=== PATIENT | female | born 1945 | race Caucasian/White ===

== ENCOUNTER 2023-10-19 19:48 | Emergency (ER) | payer OTHER, SELFPAY ==
[2023-10-19] VITALS (8 sets, daily range): BP systolic 109–159; BP diastolic 52–95
--- NOTE | 2023-10-19 21:12 | ED.GENMED ---
History of Present Illness
<Paresh Josue Ilan, DO - Last Filed: 10/19/23 22:36>
General
Chief Complaint: Head Injury
Time Seen by Provider: 10/19/23 21:12
History of Present Illness
History of Present Illness:
HPI: Patient states she fell. arrived indicating that she fell down about 3 steps in the garage falling backwards and striking the head. She has had a brain bleed in the past. She denies being on any antiplatelets or anticoagulation. She
has a laceration to the back of the head. She denies any other injury but notes acute on ankle edema.
EXAM:
GENERAL: Well appearing in no distress
CERVICAL SPINE: No midline c-spine tenderness with excellent AROM
HEAD: There is small laceration to the posterior scalp with active bleeding that improves with pressure
CHEST: No chest wall tenderness, normal heart sounds
LUNGS: Equal lung sounds, no respiratory distress
ABDOMEN: No abdominal tenderness, no peritoneal signs
EXTREMITIES: Normal active range of motion, no tenderness, moderate ankle edema noted states she has had of the past
NEURO: Excellent strength all extremities, appropriate mental status, normal speech/language
TIME OF INITIAL ENCOUNTER: 9:15 PM
NUMBER AND COMPLEXITY OF PROBLEMS ADDRESSED AT THE ENCOUNTER
� Chronic conditions affecting care: Alcoholism, cirrhosis, has had intracranial hemorrhage in the past
� Acute Exacerbation and/or Progression of Chronic Illness: This is an acute problem
� Differential Diagnosis includes: SDH, SAH, minor head injury, anemia, coagulopathy
AMOUNT AND/OR COMPLEXITY OF DATA TO BE REVIEWED AND ANALYZED
� I performed an independent evaluation of and my interpretation is:
EKG:
CT: I personally reviewed CT imaging and there is signs of left-sided subdural as well as subarachnoid hemorrhage; no cervical spine fracture noted however severe cervical disc disease noted
X-rays:
Laboratory Studies: 5.9, hemoglobin 6, chemistries, INR, alcohol 51, sodium 128
Other:
� Review of other/old records: Old record shows the patient went to the OR for a
� Clinical information was obtained by an independent historian: I spoke to the at bedside
� Prescriptions/Medications Considered but not given:
� Further testing considered but not performed:
RISK OF COMPLICATIONS AND/OR MORBIDITY OR MORTALITY OF PATIENT MANAGEMENT
� Social determinants of health affecting care: Lives at home with , drinks daily
� Discussion with other providers: I spoke to Dr. Khan at [place] at 9:30 PM and he accepts to his service to the trauma bay
� Escalation of care including admission/observation vs risk of discharge considered: I received a phone call from CT indicating that the patient has a brain bleed. I personally reviewed the images and do see signs of SDH and
SAH. She is currently neurologically intact answering questions for the most part appropriate. She is awake and alert. I recommended transfer to the . I initially suggested [facility] however the states they are closer to [facility] and prefer to go to [place]. We also talked about going back to [place] but ultimately the wanted her to go to [place]. The laceration was closed with Prolene. Tetanus updated. We also given Keppra as she has at least
moderate subdural/subarachnoid blood.
Past History
<Paresh Talavera DO - Last Filed: 10/19/23 22:36>
Past History
ED Past Medical History: Other (History of cirrhosis, esophageal varices, GI bleed, fainting episodes, fractures, anemia)
ED Past Surgical History: Other (Patient has had D&C x2)
Social History
Personal:
Living: with family
Employment: Retired
Phy Exam
<Juan Vasquez PA-C - Last Filed: 10/22/23 09:07>
Physical Exam
Physical Exam:
see HPI below
Course
<Paresh Talavera DO - Last Filed: 10/19/23 22:36>
Orders/Labs/Results
Orders:
Orders
10/19/23 20:00
CT Cervical Spine W/o Iv Contr Urgent
Comment:
Reason For Exam: head injury
CT Head W/o Iv Contrast Urgent
Comment:
Reason For Exam: head injury
10/19/23 21:37
Levetiracetam Injectable [Keppra] 1,000 mg IV NOW STA
Morphine Sulfate 2 mg IV NOW STA
Ondansetron Injectable [Zofran] 4 mg IV NOW STA
10/19/23 21:47
Alcohol Urgent
Basic Metabolic Panel Urgent
Complete Blood Count/With Diff Urgent
10/19/23 22:06
Tetanus/Diphth/Acelpertussis [Adacel] 0.5 ml IM .ONCE ONE
10/19/23 22:17
Prothrombin Time Urgent
Abnormal Lab Results
10/19/23 10/19/23
21:47 22:17
RBC 3.04 L 10^6/uL
(4.20-5.40)
Hgb 11.6 L g/dL
(12.0-16.0)
Hct 31.4 L %
(37.0-47.0)
MCV 103.3 H fL
(81.0-99.0)
MCH 38.2 H pg
(27.0-31.0)
Plt Count 104 L 10^3/uL
(130-400)
Absolute Lymphs (auto) 0.9 L 10^3/uL
(1.2-3.4)
Lymphocytes % 15.3 L %
(20.5-51.1)
Monocytes % 9.7 H %
(1.7-9.3)
PT 15.7 H Sec
(11.4-14.6)
Sodium 128 L mmol/L
(135-145)
Chloride 94 L mmol/L
(98-107)
BUN 5 L mg/dl
(7-17)
Creatinine 0.3 L mg/dL
(0.6-1.0)
Glucose 126 H mg/dl
(70-99)
10/19/23 21:47
10/19/23 21:47
Vital Signs
Initial and Last Documented VS:
Initial Vital Signs
Temp Pulse Resp BP Pulse Ox
98.6 F 73 20 159/82 96
10/19/23 19:55 10/19/23 19:55 10/19/23 19:55 10/19/23 19:55 10/19/23 19:55
Last Documented Vital Signs
Temp Pulse Resp BP Pulse Ox
98.6 F 93 16 109/52 81
10/19/23 19:55 10/19/23 22:00 10/19/23 22:00 10/19/23 22:00 10/19/23 22:00
<Juan Vasquez PA-C - Last Filed: 10/22/23 09:07>
Orders/Labs/Results
Orders:
Orders
10/19/23 20:00
CT Cervical Spine W/o Iv Contr Urgent
Comment:
Reason For Exam: head injury
CT Head W/o Iv Contrast Urgent
Comment:
Reason For Exam: head injury
10/19/23 21:37
Levetiracetam Injectable [Keppra] 1,000 mg IV NOW STA
Morphine Sulfate 2 mg IV NOW STA
Ondansetron Injectable [Zofran] 4 mg IV NOW STA
10/19/23 21:47
Alcohol Urgent
Basic Metabolic Panel Urgent
Complete Blood Count/With Diff Urgent
10/19/23 22:06
Tetanus/Diphth/Acelpertussis [Adacel] 0.5 ml IM .ONCE ONE
10/19/23 22:17
Prothrombin Time Urgent
Abnormal Lab Results
10/19/23 10/19/23
21:47 22:17
RBC 3.04 L 10^6/uL
(4.20-5.40)
Hgb 11.6 L g/dL
(12.0-16.0)
Hct 31.4 L %
(37.0-47.0)
MCV 103.3 H fL
(81.0-99.0)
MCH 38.2 H pg
(27.0-31.0)
Plt Count 104 L 10^3/uL
(130-400)
Absolute Lymphs (auto) 0.9 L 10^3/uL
(1.2-3.4)
Lymphocytes % 15.3 L %
(20.5-51.1)
Monocytes % 9.7 H %
(1.7-9.3)
PT 15.7 H Sec
(11.4-14.6)
Sodium 128 L mmol/L
(135-145)
Chloride 94 L mmol/L
(98-107)
BUN 5 L mg/dl
(7-17)
Creatinine 0.3 L mg/dL
(0.6-1.0)
Glucose 126 H mg/dl
(70-99)
10/19/23 21:47
10/19/23 21:47
Vital Signs
Initial and Last Documented VS:
Initial Vital Signs
Temp Pulse Resp BP Pulse Ox
98.6 F 73 20 159/82 96
10/19/23 19:55 10/19/23 19:55 10/19/23 19:55 10/19/23 19:55 10/19/23 19:55
Last Documented Vital Signs
Temp Pulse Resp BP Pulse Ox
98.6 F 93 16 109/52 81
10/19/23 19:55 10/19/23 22:00 10/19/23 22:00 10/19/23 22:00 10/19/23 22:00
Procedures
<Juan Vasquez PA-C - Last Filed: 10/22/23 09:07>
Laceration Closure
Posterior Scalp:
Status of Wound: clean
Size of Wound in cm: 1
Description of Wound Edges: ragged
Preparation: cleaned with saline
Anesthesia: 1% Lidocaine with epi
Type of Closure: single layer closure and other (figure 8 suture)
Skin Closure Material: 3-0 prolene (2) and 4-0 prolene (3)
Number of sutures: 5
Additional information:
Sutures placed for continuous bleeding. 3 4-0 simple interuppted sutures and 2 3-0 figure 8 sutures placed with good hemostasis. mild oozing following so large pressure dressing placed
<Paresh Talavera DO - Last Filed: 10/19/23 22:36>
*Critical Care Note
Total Time (30-74mins, 75-104mins- exclusive of procedures): 45minutes
comment:
The patient has acute subdural and subarachnoid hemorrhage. She was given Keppra. Blood pressure closely monitored, prior to discharge her systolic was 109 without any antihypertensives. I emergently discussed case with Dr. Rueda at [facility]
[place] who accepts in transfer.
ED Attending Note
<Paresh Talavera DO - Last Filed: 10/19/23 22:36>
-
Portions of this chart may have been created with voice recognition software.� Occasional wrong word or��sound alike� substitutions may have occurred due to the inherent limitations of voice recognition software.
Discharge Plan
Departure
Patient Disposition: Acute Care Hospital
Date of Disposition: 10/19/23
Time of Disposition: 21:37
Patient with high blood pressure during this ER visit?: Yes
Discharge Problem:
Intracranial hemorrhage
Prescriptions:
No Action
propranolol 10 MG tablet
10 mg PO TID
pantoprazole 40 MG tablet,delayed release (DR/EC)
40 mg PO DAILY
cetirizine 10 MG tablet
10 mg PO DAILY
zinc sulfate 25 mg zinc (110 mg) Tablet
25 mg PO DAILY
milk thistle 175 mg Tablet
175 mg PO DAILY
acetaminophen [Tylenol Extra Strength] 500 MG tablet
1,000 mg PO Q6HPRN PRN (Reason: mild pain)
selenium 50 mcg Tablet
50 mcg PO DAILY
calcium carbonate [Calcium 500] 500 mg calcium (1,250 mg) Tablet
500 mg PO DAILY
ascorbic acid (vitamin C) [Vitamin C] 500 mg Tablet
500 mg PO DAILY
ferrous sulfate 325 mg (65 mg iron) Tablet
325 mg PO DAILY
vitamin B complex [B Complete] Tablet
1 tab PO DAILY
folic acid 1 mg Tablet
1 mg PO DAILY
vitamin E 268 mg (400 unit) Capsule
268 mg PO DAILY
glucosamine-chondroitin [Osteo Bi-Flex] 250-200 mg Tablet
2 tab PO DAILY
docosahexaenoic acid-epa 1 CAP capsule
1 cap PO DAILY
cholecalciferol (vitamin D3) [Vitamin D3] 25 mcg (1,000 unit) Tablet
25 mcg PO DAILY
biotin 5 mg Tablet
5 mg PO DAILY
PreserVision AREDS 2,148 mcg-113 mg-45 mg-17.4mg Tablet
1 tab PO DAILY
cranberry 450 mg Tablet
450 mg PO DAILY
multivitamin with folic acid [Tab-A-Alana] 1 TABLET tablet
1 tab PO DAILY
turmeric 400 mg Capsule
400 mg PO DAILY
Hospital Transfer
Other hospital: [place]
I certify that the patient requires transfer: Yes
Discussed case with accepting physician: Dr. Rueda
Reason for transfer: higher level of care
Interventions
Interventions:
*Risk Screen - Suicide Last Done: 10/19/23 19:55
*General Assessment Last Done: 10/19/23 19:55
*Neglect/Abuse Screening Last Done: 10/19/23 19:55
ED- Fall Risk Assessment Last Done: 10/19/23 22:40
*ED COVID-19 Vaccine History Last Done: 10/19/23 23:00
*Nursing Disposition Last Done: 10/19/23 23:00
ED- Neurological Assessment Last Done: 10/19/23 22:40
ED-Skin Assessment Last Done: 10/19/23 22:00
Discharge Date and Time
Discharge Date/Time: 10/19/23 23:00
Print Language: INDONESIAN
[2023-10-19] MEDS: KEPPRA 1000 MG IV (21:43)
[2023-10-19] MEDS: ZOFRAN 4 MG IV (21:44)
[2023-10-19] MEDS: MORPHINE SULFATE 2 MG IV (21:44)
[2023-10-19 21:55] LABS: % Basophils 0.5 % (0-2); % Immature Granulocytes 0.5 % (0-0.5); % Lymphocytes 15.3 % (20.5-51.1); % Monocytes 9.7 % (1.7-9.3); Absolute Eosinophils 0.1 10^3/uL (0-0.7); Absolute Lymphocytes 0.9 10^3/uL (1.2-3.4); Absolute Monocytes 0.6 10^3/uL (0.1-0.6); Absolute Neutrophils 4.3 10^3/uL (1.4-6.5); Hematocrit 31.4 % (37.0-47.0); Hemoglobin 11.6 g/dL (12.0-16.0); Mean Corp Hgb Conc. 36.9 g/dL (33.0-37.0); Mean Corpuscular Hgb 38.2 pg (27.0-31.0); Mean Corpuscular Volume 103.3 fL (81.0-99.0); Mean Platelet Volume 8.3 fL (7.4-10.4); Nucleated Red Blood Cells % 0 %; Platelet Count 104 10^3/uL (130-400); Red Blood Cell Count 3.04 10^6/uL (4.20-5.40); Red Cell Dist. Width 13.2 % (11.5-14.5); White Blood Cell Count 5.9 10^3/uL (4.8-10.8)
[2023-10-19] MEDS: ADACEL 0.5 ML IM (22:12)
[2023-10-19 22:13] LABS: Alcohol 51 mg/dl; Blood Urea Nitrogen 5 mg/dl (7-17); Carbon Dioxide 24 mmol/L (22-30); Chloride 94 mmol/L (98-107); Glucose 126 mg/dl (70-99); Potassium 3.6 mmol/L (3.5-5.1); Sodium 128 mmol/L (135-145); eGFR > 60.00
[2023-10-19 22:33] LABS: INR 1.27; PT 15.7 Sec (11.4-14.6)
== END 2023-10-19 23:00 | disposition short-term general hospital (02) ==
LOC: EMR 19:48
PROVIDERS: EMERGENCY PHYSICIAN Emergency Medicine; FAMILY PHYSICIAN Family Medicine
DX: S06.6XAA Traumatic subarachnoid hemorrhage with loss of consciousness status unknown, initial encounter (principal); S01.01XA Laceration without foreign body of scalp, initial encounter; W10.9XXA Fall (on) (from) unspecified stairs and steps, initial encounter; Y92.008 Other place in unspecified non-institutional (private) residence as the place of occurrence of the external cause; Z23 Encounter for immunization; R60.0 Localized edema; R03.0 Elevated blood-pressure reading, without diagnosis of hypertension; K70.30 Alcoholic cirrhosis of liver without ascites; M50.90 Cervical disc disorder, unspecified, unspecified cervical region; I85.00 Esophageal varices without bleeding; D64.9 Anemia, unspecified; Z87.820 Personal history of traumatic brain injury; Z88.5 Allergy status to narcotic agent; Z88.2 Allergy status to sulfonamides; Z91.048 Other nonmedicinal substance allergy status
CPT/HCPCS: 99291; 96374; 96375 ×2; 12001; 90471; 70450; 72125; 80048; 82077; 85025; 85610; 90715